=== PATIENT | female | born 1985 | race African-American/Black ===

== ENCOUNTER 2019-01-04 13:17 | Emergency (ER) | payer OTHER ==
--- NOTE | 2019-01-04 13:52 | PDOC ---
Rapid Medical Evaluation Time Seen by Provider: 01/04/19 13:50 Medical Evaluation: 01/04/19 13:50 I have performed a brief in-person evaluation of this patient The patient present with a chief complaint of: vomiting x 4 days. Also reports headache with nausea and photophobia. Denies blured vision. LMP 12/05/2018 Pertinent physical exam findings: NAD even and unlabored breathing non tender abdomen I have ordered the following: labs The patient will proceed to the ED for further evaluation. Discharge Disposition - Diagnosis Nausea and vomiting - Referrals - Patient Instructions - Post Discharge Activity
[2019-01-04 13:54] VITALS: BP 137/92; PULSE 85; TEMP 98.2; BMI 42.9
--- NOTE | 2019-01-04 16:28 | PDOC ---
Attending Attestation - HPI HPI: 01/04/19 16:50 The patient is a 33 year old female, with a significant past medical history of endometriosis and irregular menstrual cycles, who presents to the emergency department with, 4 days of nausea and vomiting with associated white, non- odorous discharge. She denies recent fevers or chills. She denies recent diarrhea or constipation. She denies recent dysuria, frequency, urgency or hematuria. She denies recent chest pain or shortness of breath. Allergies: NKDA <Sandy Cali - Last Filed: 01/04/19 16:50> - Resident Resident Name: MaxiRomana - ED Attending Attestation I have performed the following: I have examined & evaluated the patient, The case was reviewed & discussed with the resident, I agree w/resident's findings & plan, Exceptions are as noted - Physicial Exam PE: 01/04/19 17:52 GENERAL: The patient is in no acute distress. ENT: Ears normal, nares patent, oropharynx clear without exudates. Moist mucous membranes. NECK: Normal range of motion, supple, LUNGS: Breath sounds equal, clear to auscultation bilaterally. No wheezes, and no crackles. HEART:Regular rate and rhythm, normal S1 and S2 without murmur, rub or gallop. ABDOMEN: Soft, nontender, normoactive bowel sounds. EXTREMITIES: Normal range of motion, no edema. NEUROLOGICAL: Cranial nerves II through XII grossly intact. Normal speech. No focal neurological deficits. SKIN: Warm, Dry, normal turgor, no rashes or lesions noted. - Medical Decision Making 01/04/19 17:52 33 yo F presenting with Nausea and vomiting She has been trying to get (NOT doing IVF or hormone injections) She missed her period by 4 days She has done several home tests but does not believe the test is accurate She would like to have the test repeated here in the ER She also reports that she has had a migraine Urine and Serum tests are negative Pt would like to go home I have asked that she follow up with her [employer] [facility] Return to the ER for any other concerns or complaints <Clare Gonzalez - Last Filed: 01/05/19 14:07> *DC/Admit/Observation/Transfer <Sandy Cali - Last Filed: 01/04/19 16:50> - Discharge Dispostion Decision to Admit order: No <Clare Gonzalez - Last Filed: 01/05/19 14:07> Diagnosis at time of Disposition: Nausea and vomiting Qualifiers: Vomiting type: unspecified Vomiting Intractability: non-intractable Qualified Code(s): R11.2 - Nausea with vomiting, unspecified - Discharge Dispostion Disposition: HOME Condition at time of disposition: Stable - Prescriptions Prescriptions: Ondansetron HCl [Zofran] 4 mg PO BID PRN #10 tablet PRN Reason: Nausea - Referrals Referrals: ON STAFF,NOT [Primary Care Provider] - - Patient Instructions Printed Discharge Instructions: DI for Migraine, DI for Nausea -- Adult, DI for Vomiting -- Adult Additional Instructions: You presented to the hospital for nausea and vomiting. Please continue to drink plenty of fluids and rest. If you continue to feel nauseous please take: Zofran 4mg every 4 hours as needed If your symptoms worsen or you develop chest pain, nausea, vomiting, shortness of breath, fevers or chills, please return to the Emergency Department. - Post Discharge Activity Forms/Work/School Notes: Back to Work Attestations - Attestations 01/04/19 16:50 Documentation prepared by Sandy Cali, acting as program medical director for Clare Gonzalez MD. <Sandy Cali - Last Filed: 01/04/19 16:50>
--- NOTE | 2019-01-04 17:13 | PDOC ---
History of Present Illness - General Chief Complaint: Nausea/Vomiting Stated Complaint: VOMITING/HEADACHE Time Seen by Provider: 01/04/19 13:50 History Source: Patient Exam Limitations: No Limitations - History of Present Illness Initial Comments: 01/04/19 17:01 Patient is a 33 y/o female with no past medical history who is here for nausea, vomiting, and abdominal cramping. Patient reports it has been about four days. The abdominal cramping has resolved and only lasted a couple days. Patient reports she is trying to get with her fiance and she missed her period by four days. She typically has a regular menstrual cycle that is heavy as she has a history of endometriosis. Patient has no other complaints. Past History - Past Medical History Allergies/Adverse Reactions: Allergies Allergy/AdvReac Type Severity Reaction Status Date / Time No Known Allergies Allergy Verified 01/04/19 13:54 Home Medications: Ambulatory Orders Ondansetron HCl [Zofran] 4 mg PO BID PRN #10 tablet 01/04/19 - Reproductive History Is Patient Now?: No - Suicide/Smoking/Psychosocial Hx Smoking History: Never smoked Have you smoked in the past 12 months: No Information on smoking cessation initiated: No Hx Alcohol Use: No Drug/Substance Use Hx: No Review of Systems - Review of Systems Constitutional: No: Chills, Fever Respiratory: No: Cough, Shortness of Breath Cardiac (ROS): No: Chest Pain ABD/GI: Yes: Nausea, Vomiting. No: Diarrhea : No: Dysuria, Discharge Musculoskeletal: No: Back Pain, Gout Neurological: No: Headache *Physical Exam - Vital Signs Last Vital Signs Temp Pulse Resp BP Pulse Ox 98.2 F 85 18 137/92 100 01/04/19 13:50 01/04/19 13:50 01/04/19 13:50 01/04/19 13:50 01/04/19 13:50 - Physical Exam Comments: 01/04/19 17:13 GENERAL: A&O x3, no acute distress EYES: EOMI HEART: RRR, no murmurs, rubs, or gallops LUNGS: CTAL B/L ABDOMEN: soft, non tender, non distended EXTREMITIES: no pitting edema SKIN: no rashes or ulcers noted ED Treatment Course - ADDITIONAL ORDERS Additional order review: Laboratory Results 01/04/19 14:20 Urine HCG, Qual Negative Medical Decision Making - Medical Decision Making 01/04/19 17:15 Urine negative f/u serum 01/04/19 18:37 serum negative, zofran for nausea will prescribe zofran for outpatient and can follow up with PCP *DC/Admit/Observation/Transfer Diagnosis at time of Disposition: Nausea and vomiting Qualifiers: Vomiting type: unspecified Vomiting Intractability: non-intractable Qualified Code(s): R11.2 - Nausea with vomiting, unspecified - Discharge Dispostion Disposition: HOME Condition at time of disposition: Stable - Prescriptions Prescriptions: Ondansetron HCl [Zofran] 4 mg PO BID PRN #10 tablet PRN Reason: Nausea - Referrals Referrals: ON STAFF,NOT [Primary Care Provider] - - Patient Instructions Printed Discharge Instructions: DI for Migraine, DI for Nausea -- Adult, DI for Vomiting -- Adult Additional Instructions: You presented to the hospital for nausea and vomiting. Please continue to drink plenty of fluids and rest. If you continue to feel nauseous please take: Zofran 4mg every 4 hours as needed If your symptoms worsen or you develop chest pain, nausea, vomiting, shortness of breath, fevers or chills, please return to the Emergency Department. - Post Discharge Activity Forms/Work/School Notes: Back to Work
[2019-01-04] MEDS ORDERED: ONDANSETRON 8 MG TABLET (FP) PO ONE ×2 (17:46→18:13)
== END 2019-01-04 18:18 | disposition home or self-care (01) ==
LOC: JER 13:17
DX: R11.2 Nausea with vomiting, unspecified (principal)
CPT/HCPCS: 36415; 84703; 99282-25